=== PATIENT | female | born 1945 | race Caucasian/White ===

== ENCOUNTER 2020-03-07 00:24 | Emergency (ER) | payer OTHER, MEDICAID ==
[~2020-03-07] VITALS: Ht 170.2 cm; Wt 42.6 kg
[2020-03-07 00:30] VITALS: BP_SYST 158
--- NOTE | 2020-03-07 00:30 | NUR ---
Patient to ER bed 5 to gown for evaluation. Side rails up. Report given to RAYA REYES.
--- NOTE | 2020-03-07 00:34 | NUR ---
Patient came to ER with family. C/O epigastric pain x today. Per family reported, patient had chronic abdominal pain over a year, today , Patient couldn't eat, abdominal pain, no vomitting or diarrhea,burping all day. Patient's PMD -Follow up for Colonoscopy for Eval, Patient postpone for couple time. Hx HTN and High Cholesterol. A/O,X4, Epigastric pain, pain rate 8/10, BP 157/86.
--- NOTE | 2020-03-07 01:06 | NUR ---
Medication reconciliation completed with information provided by family. Any prior medication reconciliation on file was reviewed and corrected.
--- NOTE | 2020-03-07 01:06 | NUR ---
MICHELLE Herring at bedside examining patient.
[2020-03-07] MEDS ORDERED: SUCR1TAB78 PO (01:15)
[2020-03-07] MEDS ORDERED: LOVA10TA55 PO (01:15)
[2020-03-07] MEDS ORDERED: OMEP20CA11 PO (01:15)
[2020-03-07] MEDS ORDERED: AMLO10TA88 PO (01:15)
[2020-03-07] MEDS ORDERED: ESCI10TA PO (01:15)
--- NOTE | 2020-03-07 01:21 | NUR ---
X-ray at bedside.
[2020-03-07 01:23] LABS: BILIRUBIN,URINE NEGATIVE (NEGATIVE); BLOOD, URINE 1+ (NEGATIVE); CLARITY/URINE CLEAR (CLEAR); COLOR,URINE YELLOW (YELLOW); GLUCOSE,URINE NEGATIVE (NEGATIVE); KETONES,URINE NEGATIVE (NEGATIVE); LEUKOCYTE ESTERASE ,URINE NEGATIVE (NEGATIVE); NITRITE, URINE NEGATIVE (NEGATIVE); PH,URINE 5.5 (5.0-8.0); PROTEIN URINE NEGATIVE (NEGATIVE); UROBILINOGEN,URINE 0.2 (0.2-1.0)
[2020-03-07 01:25] LABS: BASOPHILS % (AUTO) 0.9 % (0.0-2.0); EOSINOPHILS # (AUTO) 0.1 K/uL (0.0-0.4); EOSINOPHILS % (AUTO) 2.8 % (0.0-4.0); HEMATOCRIT 41.5 % (36-48); LYMPHOCYTES # (AUTO) 1.4 K/uL (1.0-5.5); LYMPHOCYTES % (AUTO) 32.1 % (20.5-51.5); MEAN CORPUSCULAR HEMOGLOBIN 31 pg (27-31); MEAN CORPUSCULAR HGB CONC 34 % (32-36); MEAN CORPUSCULAR VOLUME 93 fL (79.0-98.0); MONOCYTES # (AUTO) 0.6 K/uL (0.0-1.0); MONOCYTES % (AUTO) 12.9 % (1.7-9.3); NEUTROPHILS # (AUTO) 2.2 K/uL (1.8-7.7); NEUTROPHILS % (AUTO) 51.3 % (40.0-70.0); PLATELET COUNT (AUTO) 189 K/uL (130-430); RED BLOOD CELL COUNT(AUTO) 4.49 MIL/uL (4.2-6.2); RED CELL DISTRIBUTION WIDTH 13.9 % (9.0-15.0); WHITE BLOOD COUNT (AUTO) 4.4 K/uL (4.8-10.8)
[2020-03-07 01:31] LABS: ANION GAP 5 (5-15); CALCIUM 9.1 mg/dL (8.4-11.0); CHLORIDE 99 mmol/L (98-107); CREATININE 1.06 mg/dL (0.55-1.30); GLUCOSE 106 mg/dL (70-99); POTASSIUM 3.8 mmol/L (3.5-5.1); SODIUM SERUM 134 mmol/L (136-145); UREA NITROGEN, BLOOD 17 mg/dL (8-21)
[2020-03-07 01:37] LABS: ALANINE AMINOTRANSFERASE 28 U/L (12-78); ALBUMIN 3.9 g/dL (3.4-4.8); ASPARTATE AMINOTRANSFERASE 27 U/L (10-37); LIPASE 215 U/L (73-393); TOTAL BILIRUBIN 0.9 mg/dL (0.0-1.0)
[2020-03-07] MEDS ORDERED: LACTULOSE 20 GM/30 ML UDC PO ONE (01:45)
[2020-03-07 01:56] LABS: BACTERIA,URINE FEW /HPF (None Seen); WBC,URINE 0-3 /HPF (0-3)
--- NOTE | 2020-03-07 02:28 | NUR ---
Given soap suds edema per Dr. Herring verbal order.
--- NOTE | 2020-03-07 02:30 | NUR ---
Provide bedside commode.
--- NOTE | 2020-03-07 02:43 | NUR ---
Patient had one loose stool, patient states "feel better, pain rate 3/10."
[2020-03-07 03:01] VITALS: BP_SYST 145
--- NOTE | 2020-03-07 03:01 | NUR ---
Patient given written and verbal discharge instructions and verbalizes understanding. ER MD discussed with patient the results and treatment provided. Patient in stable condition. ID arm band removed. IV catheter removed intact and dressing applied, no active bleeding. Rx of Lactulose given. Patient educated on pain management and to follow up with PMD. Pain Scale 3/10. Opportunity for questions provided and answered. Medication side effect fact sheet provided.
== END 2020-03-07 03:01 | disposition home or self-care (01) ==
LOC: SED 00:24
DX: K59.00 Constipation, unspecified (principal); I10 Essential (primary) hypertension; K21.9 Gastro-esophageal reflux disease without esophagitis; E78.00 Pure hypercholesterolemia, unspecified; Z79.899 Other long term (current) drug therapy; Z90.49 Acquired absence of other specified parts of digestive tract
CPT/HCPCS: 36415; 74018; 80053; 81000-TC; 83690-TC; 85025; 99284